=== PATIENT | male | born 1965 | race Caucasian/White ===

== ENCOUNTER 2018-07-25 21:56 | Inpatient (IN) | payer MEDICARE, OTHER ==
[~2018-07-25] VITALS: Ht 165.1 cm; Wt 106.8 kg
[~2018-07-25 21:56] MED LIST: ACET-890 PO; AMIL5TAB3 PO; AMOX-441 PO; BACDS PO; COL100C PO; DEXT37.55 PO; DULO-31 PO; HYDR28.457 TP; INSU100I12 SQ; INSU100V36 SQ; LACT1POW8 PO; METF500T7 PO; MULT-215 PO; NORCO10T PO; NYSTATIN TOP; ONDA4TAB6 PO; OXYC10TA6 PO; POLY17PO10 PO; PREG100C24 PO; VIT C PO; ZINC PO; [UNRECOGNIZED DRUG - CODE] TP
[2018-07-25] MEDS ORDERED: acetaminophen 325mg tablet PO STA (22:02)
[2018-07-25] MEDS ORDERED: normal saline 1000ML IV soln IV ONE (22:05)
[2018-07-25] MEDS ORDERED: levoFLOXACIN-Levaquin 750MG/D5 150 ML IV ONE (22:05)
[2018-07-25 22:34] LABS: BASOPHILS # (AUTO) 0.1 X10'3 (0-0.2); BASOPHILS % (AUTO) 1.9 % (0-1); EOSINOPHILS # (AUTO) 0.2 X10'3 (0-0.9); HEMATOCRIT 38.8 % (42.0-52.0); HEMOGLOBIN 13.2 g/dl (14.0-17.9); LYMPHOCYTES # (AUTO) 1.6 X10'3 (1.1-4.8); MEAN CORPUSCULAR HEMOGLOBIN 30.4 PG (27.0-31.0); MEAN CORPUSCULAR HGB CONC 34.1 % (33.0-36.5); MEAN CORPUSCULAR VOLUME 89.2 FL (78-98); MONOCYTES # (AUTO) 0.5 X10'3 (0-0.9); MONOCYTES % (AUTO) 7.3 % (2-12); NEUTROPHILS # (AUTO) 4.7 X10'3 (1.8-7.7); NEUTROPHILS % (AUTO) 65.8 % (42-75); PLATELET COUNT 187 X10'3 (140-440); RED BLOOD COUNT 4.34 X10'6 (4.70-6.10); RED CELL DISTRIBUTION WIDTH 13.7 % (11.5-14.5); WHITE BLOOD COUNT 7.1 X10'3 (4.5-11.0)
[2018-07-25 22:45] LABS: ALANINE AMINOTRANSFERASE 32 U/L (12-78); ALBUMIN 2.8 G/DL (3.4-5.0); ALBUMIN/GLOBULIN RATIO 0.6 (1.1-1.5); ALKALINE PHOSPHATASE 82 IU/L (46-116); ANION GAP 8 (8-16); ASPARTATE AMINO TRANSFERASE 13 U/L (10-37); BILIRUBIN,TOTAL 0.4 MG/DL (0.1-1.0); BLOOD UREA NITROGEN 10 MG/DL (7-18); BUN/CREATININE RATIO 11.9 (5.4-32.0); CALCIUM 8.6 MG/DL (8.5-10.1); CHLORIDE 100 MMOL/L (99-107); CREATININE 0.84 MG/DL (0.60-1.10); GLUCOSE 309 MG/DL (70-104); MAGNESIUM 1.5 MG/DL (1.5-2.4); POTASSIUM 3.7 MMOL/L (3.5-5.1); SODIUM 135 MMOL/L (135-145); TOTAL CARBON DIOXIDE 27.1 MMOL/L (24-32); TOTAL PROTEIN 7.2 G/DL (6.4-8.2); eGFR > 90 ML/MIN
[2018-07-25] MEDS ORDERED: normal saline 1000ML IV soln IVB ONE (23:10)
[2018-07-25 23:26] LABS: CLARITY,URINE CLEAR (Clear); COLOR,URINE YELLOW (Yellow); GLUCOSE, URINE >=1000 mg/dl (Neg); KETONES,URINE NEGATIVE (Neg); LEUKOCYTE ESTERASE ,URINE SMALL (Neg); NITRITES, URINE NEGATIVE (Neg); OCCULT BLOOD,URINE LARGE (Neg); PH,URINE 6.5 (4.8-8.0); PROTEIN,URINE NEGATIVE (Neg); UROBILINOGEN,URINE 0.2 E.U/dL (0.2-1.0)
[2018-07-25 23:27] LABS: PARTIAL THROMBOPLASTIN TIME 28 SECONDS (22-32); PROTHROMBIN TIME 10.5 SECONDS (9.0-12.0)
[2018-07-25 23:27] LABS: UA COLLECTION TYPE FOLEY CATH
[2018-07-25 23:34] LABS: BACTERIA,URINE NONE SEEN /HPF (Neg); MUCUS STRANDS NONE SEEN /LPF (Neg); SQUAMOUS EPITHELIAL CELL,UR NONE SEEN /LPF (FEW)
[2018-07-25] MEDS ORDERED: ondansetron/PF 4mg/2ml inj IV PRN (23:45)
[2018-07-25] MEDS ORDERED: potassium Cl 20 mEq SR tablet PO PRN ×2 (23:45)
[2018-07-25] MEDS ORDERED: magnesium 4gm in 100ml NS 100 ML IV PRN (23:45)
[2018-07-25] MEDS ORDERED: magnesium 1gm/100ml D5W IVPB 100 ML IV PRN (23:45)
[2018-07-25] MEDS ORDERED: magnesium hydroxide 30ml (MOM) UD suspension PO PRN (23:45)
[2018-07-25] MEDS ORDERED: dextrose 50%-water 50ml dispensing syringe IV PRN ×2 (23:45)
[2018-07-25] MEDS ORDERED: acetaminophen 325mg tablet PO PRN ×2 (23:45)
[2018-07-25] MEDS ORDERED: MESSAGE TO PHARMACY PO ONE (23:45)
[2018-07-25] MEDS ORDERED: dextrose ORAL solution 15 GM/59 ML bottle PO PRN ×2 (23:45)
[2018-07-25] MEDS ORDERED: glucagon, human recombinant 1mg kit SUBCUT PRN (23:45)
[2018-07-25] MEDS ORDERED: magnesium Cl slow-release 64mg tablet PO PRN (23:45)
[2018-07-25] MEDS ORDERED: potassium Cl 40MEQ/NS 500ml 500 ML IV PRN ×2 (23:45)
[2018-07-25] MEDS ORDERED: normal saline 1000ml 1,000 ML IV ONE (23:45)
[2018-07-25] MEDS ORDERED: mag hydrox/Alum hydrox/simeth 30ml oral suspension PO PRN (23:45)
[2018-07-26 01:15] VITALS: BP_SYST 209; BP_SYST 229; BP_DIAS 107; BP_DIAS 110
[2018-07-26] MEDS: hydrALAZINE 20mg/ml inj. IV PRN ×2 (01:29→23:00)
[2018-07-26 03:00] VITALS: BP 114/78
[2018-07-26] MEDS ORDERED: HYDROcodone/acetaminophen 10/325mg tab PO PRN (04:00)
[2018-07-26 06:02] LABS: ALBUMIN 2.3 G/DL (3.4-5.0); ANION GAP 8 (8-16); BLOOD UREA NITROGEN 8 MG/DL (7-18); BUN/CREATININE RATIO 13.6 (5.4-32.0); CALCIUM 7.8 MG/DL (8.5-10.1); CHLORIDE 108 MMOL/L (99-107); CREATININE 0.59 MG/DL (0.60-1.10); GLUCOSE 218 MG/DL (70-104); MAGNESIUM 1.5 MG/DL (1.5-2.4); POTASSIUM 3.8 MMOL/L (3.5-5.1); SODIUM 141 MMOL/L (135-145); TOTAL CARBON DIOXIDE 24.8 MMOL/L (24-32); eGFR > 90 ML/MIN
[2018-07-26 06:35] LABS: BASOPHILS % (AUTO) 0.4 % (0-1); EOSINOPHILS # (AUTO) 0.4 X10'3 (0-0.9); EOSINOPHILS % (AUTO) 5.8 % (0-6); HEMATOCRIT 34.5 % (42.0-52.0); HEMOGLOBIN 12.1 g/dl (14.0-17.9); LYMPHOCYTES # (AUTO) 1.4 X10'3 (1.1-4.8); LYMPHOCYTES % (AUTO) 20.4 % (21-51); MEAN CORPUSCULAR HGB CONC 35.1 % (33.0-36.5); MEAN PLATELET VOLUME 9.1 FL (7.4-10.4); MONOCYTES # (AUTO) 0.6 X10'3 (0-0.9); MONOCYTES % (AUTO) 9.3 % (2-12); NEUTROPHILS # (AUTO) 4.6 X10'3 (1.8-7.7); NEUTROPHILS % (AUTO) 64.1 % (42-75); PLATELET COUNT 169 X10'3 (140-440); RED CELL DISTRIBUTION WIDTH 14.2 % (11.5-14.5)
[2018-07-26 06:51] LABS: HEMOGLOBIN A1C 8.1 % (4.5-6.2)
[2018-07-26 07:46] VITALS: BP 153/83
[2018-07-26] MEDS: K and/or MAG REPLACEMENT MC SCH (08:00)
[2018-07-26] MEDS ORDERED: hydrocortisone 2.5% cream 28.4gm TP PRN (08:00)
[2018-07-26] MEDS ORDERED: INSU100I12 SQ (08:25)
[2018-07-26] MEDS: docusate sod 100mg capsule PO SCH ×2 (08:51→20:00)
[2018-07-26] MEDS: duloxetine 30mg CAPSULE.DR PO SCH (08:51)
[2018-07-26] MEDS: polyethylene glycol 3350 17gm powd pack PO SCH (08:51)
[2018-07-26] MEDS: enoxaparin 40mg/0.4ml syringe SQ SCH (08:52)
[2018-07-26] MEDS ORDERED: ONDA4TAB6 PO (09:16)
[2018-07-26] MEDS ORDERED: OXYC10TA6 PO (09:16)
[2018-07-26] MEDS ORDERED: NORCO10T PO (09:16)
[2018-07-26] MEDS ORDERED: VIT C PO (09:16)
[2018-07-26] MEDS ORDERED: [UNRECOGNIZED DRUG - CODE] TP (09:16)
[2018-07-26] MEDS ORDERED: POLY17PO10 PO (09:16)
[2018-07-26] MEDS ORDERED: ZINC PO (09:16)
[2018-07-26] MEDS ORDERED: PREG100C24 PO (09:16)
[2018-07-26 12:14] VITALS: BP 143/76
[2018-07-26] MEDS: insulin Lispro (HumaLOG) vial - multi-dose SQ SCH ×2 (13:10→18:37)
[2018-07-26] MEDS: nystatin/triamcinolone cream 15gm TP SCH ×2 (15:50→20:41)
[2018-07-26] MEDS: DOXYCYCLINE 100MG CAPSULE PO SCH (17:17)
[2018-07-26 20:00] VITALS: BP 165/91
[2018-07-26] MEDS: nystatin 15 GM powder TP SCH (20:40)
[2018-07-26] MEDS: lactobacillus rhamnosus 10,000 MMU CELLS/CAPSULE PO SCH (20:40)
[2018-07-26] MEDS: insulin glargine (Lantus) pen - multi-dose SQ SCH (20:43)
[2018-07-26] MEDS ORDERED: Insulin Detemir pen SQ SCH (21:00)
[2018-07-26] MEDS ORDERED: levoFLOXACIN-Levaquin 750MG/D5 150 ML IV SCH (22:00)
[2018-07-27] VITALS: BP 190/89
[2018-07-27] MEDS: K and/or MAG REPLACEMENT MC SCH (08:00)
[2018-07-27] MEDS: nystatin/triamcinolone cream 15gm TP SCH ×3 (08:00→22:36)
[2018-07-27 08:06] VITALS: BP 169/92
[2018-07-27 08:47] LABS: ALBUMIN 2.7 G/DL (3.4-5.0); ANION GAP 12 (8-16); BLOOD UREA NITROGEN 10 MG/DL (7-18); BUN/CREATININE RATIO 22.2 (5.4-32.0); CALCIUM 8.2 MG/DL (8.5-10.1); CHLORIDE 102 MMOL/L (99-107); CREATININE 0.45 MG/DL (0.60-1.10); GLUCOSE 146 MG/DL (70-104); MAGNESIUM 1.5 MG/DL (1.5-2.4); POTASSIUM 3.9 MMOL/L (3.5-5.1); SODIUM 139 MMOL/L (135-145); TOTAL CARBON DIOXIDE 25.1 MMOL/L (24-32); eGFR > 90 ML/MIN
[2018-07-27] MEDS: insulin Lispro (HumaLOG) vial - multi-dose SQ SCH ×3 (08:47→19:20)
[2018-07-27] MEDS: DOXYCYCLINE 100MG CAPSULE PO SCH (09:31)
[2018-07-27] MEDS: docusate sod 100mg capsule PO SCH ×2 (09:31→22:35)
[2018-07-27] MEDS: lactobacillus rhamnosus 10,000 MMU CELLS/CAPSULE PO SCH ×2 (09:31→22:35)
[2018-07-27] MEDS: duloxetine 30mg CAPSULE.DR PO SCH (09:32)
[2018-07-27] MEDS: polyethylene glycol 3350 17gm powd pack PO SCH (09:32)
[2018-07-27] MEDS: enoxaparin 40mg/0.4ml syringe SQ SCH (09:32)
[2018-07-27] MEDS: nystatin 15 GM powder TP SCH ×2 (10:49→22:36)
[2018-07-27 11:44] VITALS: BP 98/50
[2018-07-27] MEDS ORDERED: vancomycin/NS 1 GM ADD-VANTAGE 250 ML IV SCH (12:40)
[2018-07-27] MEDS: hydrALAZINE 20mg/ml inj. IV PRN (19:21)
[2018-07-27 20:00] VITALS: BP 202/102
[2018-07-27 21:00] VITALS: BP 136/72
[2018-07-27] MEDS: insulin glargine (Lantus) pen - multi-dose SQ SCH (22:41)
[2018-07-27] MEDS: HYDROcodone/acetaminophen 10/325mg tab PO PRN (22:55)
[2018-07-28] VITALS: BP 173/82
[2018-07-28 00:30] VITALS: BP 108/60
[2018-07-28 06:09] LABS: ALBUMIN 2.3 G/DL (3.4-5.0); ANION GAP 7 (8-16); BLOOD UREA NITROGEN 13 MG/DL (7-18); BUN/CREATININE RATIO 34.2 (5.4-32.0); CALCIUM 8.1 MG/DL (8.5-10.1); CHLORIDE 106 MMOL/L (99-107); CREATININE 0.38 MG/DL (0.60-1.10); GLUCOSE 125 MG/DL (70-104); MAGNESIUM 1.6 MG/DL (1.5-2.4); SODIUM 140 MMOL/L (135-145); TOTAL CARBON DIOXIDE 26.9 MMOL/L (24-32); eGFR > 90 ML/MIN
[2018-07-28 06:11] LABS: POTASSIUM 4.6 MMOL/L (3.5-5.1)
[2018-07-28] MEDS: K and/or MAG REPLACEMENT MC SCH (08:00)
[2018-07-28 08:06] VITALS: BP 153/82
[2018-07-28] MEDS: nystatin 15 GM powder TP SCH ×2 (08:44→22:39)
[2018-07-28] MEDS: nystatin/triamcinolone cream 15gm TP SCH ×3 (08:44→22:39)
[2018-07-28] MEDS: docusate sod 100mg capsule PO SCH ×2 (08:45→19:50)
[2018-07-28] MEDS: enoxaparin 40mg/0.4ml syringe SQ SCH (08:45)
[2018-07-28] MEDS: polyethylene glycol 3350 17gm powd pack PO SCH (08:45)
[2018-07-28] MEDS: duloxetine 30mg CAPSULE.DR PO SCH (08:45)
[2018-07-28] MEDS: lactobacillus rhamnosus 10,000 MMU CELLS/CAPSULE PO SCH ×2 (08:46→19:50)
[2018-07-28] MEDS: insulin Lispro (HumaLOG) vial - multi-dose SQ SCH ×3 (08:52→19:56)
[2018-07-28 11:00] VITALS: BP 134/77
[2018-07-28] MEDS ORDERED: VANCOMYCIN LEVEL IV ONE (13:30)
[2018-07-28 19:30] VITALS: BP 161/90
[2018-07-28] MEDS: HYDROcodone/acetaminophen 10/325mg tab PO PRN (20:29)
[2018-07-28] MEDS: insulin glargine (Lantus) pen - multi-dose SQ SCH (23:51)
[2018-07-29] VITALS: BP 156/86
[2018-07-29] MEDS: HYDROcodone/acetaminophen 10/325mg tab PO PRN ×2 (04:50→19:25)
[2018-07-29 05:42] LABS: ALBUMIN 2.5 G/DL (3.4-5.0); ANION GAP 8 (8-16); BLOOD UREA NITROGEN 10 MG/DL (7-18); BUN/CREATININE RATIO 26.3 (5.4-32.0); CALCIUM 8.5 MG/DL (8.5-10.1); CHLORIDE 106 MMOL/L (99-107); CREATININE 0.38 MG/DL (0.60-1.10); GLUCOSE 113 MG/DL (70-104); MAGNESIUM 1.6 MG/DL (1.5-2.4); POTASSIUM 3.6 MMOL/L (3.5-5.1); SODIUM 142 MMOL/L (135-145); TOTAL CARBON DIOXIDE 28.5 MMOL/L (24-32); eGFR > 90 ML/MIN
[2018-07-29 05:45] LABS: BASOPHILS % (AUTO) 0.8 % (0-1); EOSINOPHILS # (AUTO) 0.8 X10'3 (0-0.9); EOSINOPHILS % (AUTO) 15.2 % (0-6); HEMATOCRIT 35.1 % (42.0-52.0); HEMOGLOBIN 12.1 g/dl (14.0-17.9); LYMPHOCYTES # (AUTO) 1.5 X10'3 (1.1-4.8); LYMPHOCYTES % (AUTO) 28.3 % (21-51); MEAN CORPUSCULAR HEMOGLOBIN 31.2 PG (27.0-31.0); MEAN CORPUSCULAR HGB CONC 34.6 % (33.0-36.5); MEAN CORPUSCULAR VOLUME 90.2 FL (78-98); MONOCYTES # (AUTO) 0.4 X10'3 (0-0.9); MONOCYTES % (AUTO) 8.2 % (2-12); NEUTROPHILS # (AUTO) 2.6 X10'3 (1.8-7.7); NEUTROPHILS % (AUTO) 47.5 % (42-75); PLATELET COUNT 205 X10'3 (140-440); RED BLOOD COUNT 3.89 X10'6 (4.70-6.10); RED CELL DISTRIBUTION WIDTH 13.3 % (11.5-14.5); WHITE BLOOD COUNT 5.3 X10'3 (4.5-11.0)
[2018-07-29 07:15] VITALS: BP 192/102
[2018-07-29] MEDS: K and/or MAG REPLACEMENT MC SCH (08:00)
[2018-07-29 08:45] VITALS: BP 133/84
[2018-07-29] MEDS: duloxetine 30mg CAPSULE.DR PO SCH (08:58)
[2018-07-29] MEDS: polyethylene glycol 3350 17gm powd pack PO SCH (08:58)
[2018-07-29] MEDS: lactobacillus rhamnosus 10,000 MMU CELLS/CAPSULE PO SCH ×2 (08:59→19:29)
[2018-07-29] MEDS: docusate sod 100mg capsule PO SCH ×2 (08:59→19:25)
[2018-07-29] MEDS: enoxaparin 40mg/0.4ml syringe SQ SCH (09:00)
[2018-07-29] MEDS: nystatin/triamcinolone cream 15gm TP SCH ×3 (09:01→21:25)
[2018-07-29] MEDS: nystatin 15 GM powder TP SCH ×2 (09:02→21:20)
[2018-07-29] MEDS: insulin Lispro (HumaLOG) vial - multi-dose SQ SCH ×3 (09:06→19:22)
[2018-07-29 11:54] VITALS: BP 146/85
[2018-07-29] MEDS ORDERED: iohexol 300mg/ml 100ml inj. ONE (16:39)
[2018-07-29 18:00] VITALS: BP 186/94
[2018-07-29] MEDS: hydrALAZINE 20mg/ml inj. IV PRN (19:25)
[2018-07-29] MEDS: sulfamethoxazole/trimethoprim DS (800/160mg) tablet PO SCH (19:25)
[2018-07-29] MEDS: insulin glargine (Lantus) pen - multi-dose SQ SCH (21:23)
[2018-07-29 21:51] VITALS: BP 152/59
[2018-07-30] VITALS: BP 153/86
[2018-07-30 06:01] LABS: BASOPHILS % (AUTO) 0.9 % (0-1); EOSINOPHILS # (AUTO) 0.6 X10'3 (0-0.9); EOSINOPHILS % (AUTO) 11.4 % (0-6); HEMATOCRIT 35.1 % (42.0-52.0); HEMOGLOBIN 12.3 g/dl (14.0-17.9); LYMPHOCYTES # (AUTO) 1.4 X10'3 (1.1-4.8); LYMPHOCYTES % (AUTO) 27.1 % (21-51); MEAN CORPUSCULAR HEMOGLOBIN 31.5 PG (27.0-31.0); MEAN CORPUSCULAR HGB CONC 35.1 % (33.0-36.5); MEAN CORPUSCULAR VOLUME 89.7 FL (78-98); MONOCYTES # (AUTO) 0.4 X10'3 (0-0.9); MONOCYTES % (AUTO) 6.7 % (2-12); NEUTROPHILS # (AUTO) 2.9 X10'3 (1.8-7.7); NEUTROPHILS % (AUTO) 53.9 % (42-75); PLATELET COUNT 184 X10'3 (140-440); RED BLOOD COUNT 3.91 X10'6 (4.70-6.10); RED CELL DISTRIBUTION WIDTH 13.3 % (11.5-14.5); WHITE BLOOD COUNT 5.3 X10'3 (4.5-11.0)
[2018-07-30 06:13] LABS: ALBUMIN 2.5 G/DL (3.4-5.0); ANION GAP 10 (8-16); BLOOD UREA NITROGEN 12 MG/DL (7-18); BUN/CREATININE RATIO 27.9 (5.4-32.0); CHLORIDE 104 MMOL/L (99-107); CREATININE 0.43 MG/DL (0.60-1.10); GLUCOSE 106 MG/DL (70-104); MAGNESIUM 1.5 MG/DL (1.5-2.4); SODIUM 140 MMOL/L (135-145); TOTAL CARBON DIOXIDE 26.4 MMOL/L (24-32); eGFR > 90 ML/MIN
[2018-07-30 06:31] LABS: POTASSIUM 3.9 MMOL/L (3.5-5.1)
[2018-07-30 07:00] VITALS: BP 149/85
[2018-07-30] MEDS: duloxetine 30mg CAPSULE.DR PO SCH (07:36)
[2018-07-30] MEDS: polyethylene glycol 3350 17gm powd pack PO SCH (07:36)
[2018-07-30] MEDS: lactobacillus rhamnosus 10,000 MMU CELLS/CAPSULE PO SCH ×2 (07:36→19:20)
[2018-07-30] MEDS: sulfamethoxazole/trimethoprim DS (800/160mg) tablet PO SCH ×2 (07:36→19:20)
[2018-07-30] MEDS: docusate sod 100mg capsule PO SCH ×2 (07:36→19:20)
[2018-07-30] MEDS: enoxaparin 40mg/0.4ml syringe SQ SCH (07:38)
[2018-07-30] MEDS: nystatin 15 GM powder TP SCH ×2 (07:39→19:20)
[2018-07-30] MEDS: nystatin/triamcinolone cream 15gm TP SCH ×3 (07:39→21:44)
[2018-07-30] MEDS: K and/or MAG REPLACEMENT MC SCH (08:00)
[2018-07-30] MEDS: insulin Lispro (HumaLOG) vial - multi-dose SQ SCH ×3 (08:57→19:19)
[2018-07-30] MEDS ORDERED: BACDS PO (11:37)
[2018-07-30] MEDS ORDERED: LACT1CAP26 PO (11:37)
[2018-07-30] MEDS: HYDROcodone/acetaminophen 10/325mg tab PO PRN ×2 (14:45→19:23)
[2018-07-30 18:00] VITALS: BP 106/60
[2018-07-30] MEDS: insulin glargine (Lantus) pen - multi-dose SQ SCH (21:41)
[2018-07-31] VITALS: BP 100/53
[2018-07-31 07:00] VITALS: BP 142/84
[2018-07-31] MEDS: K and/or MAG REPLACEMENT MC SCH (08:00)
[2018-07-31] MEDS: enoxaparin 40mg/0.4ml syringe SQ SCH (08:19)
[2018-07-31] MEDS: polyethylene glycol 3350 17gm powd pack PO SCH (08:19)
[2018-07-31] MEDS: sulfamethoxazole/trimethoprim DS (800/160mg) tablet PO SCH (08:20)
[2018-07-31] MEDS: nystatin/triamcinolone cream 15gm TP SCH ×2 (08:20→12:40)
[2018-07-31] MEDS: duloxetine 30mg CAPSULE.DR PO SCH (08:20)
[2018-07-31] MEDS: docusate sod 100mg capsule PO SCH (08:20)
[2018-07-31] MEDS: nystatin 15 GM powder TP SCH (08:20)
[2018-07-31] MEDS: lactobacillus rhamnosus 10,000 MMU CELLS/CAPSULE PO SCH (08:20)
[2018-07-31] MEDS: insulin Lispro (HumaLOG) vial - multi-dose SQ SCH (08:24)
[2018-07-31 12:00] VITALS: BP 159/102
[2018-07-31] MEDS: HYDROcodone/acetaminophen 10/325mg tab PO PRN (12:39)
[2018-07-31 12:55] VITALS: BP 142/89
== END 2018-07-31 14:14 | disposition home health service (06) | DRG 698 ==
LOC: ER 21:57 → ED HOLD 23:45 → SUR 3N 07-26 00:57
PROVIDERS: ADMIT Hospitalist; ATTEND Hospitalist
PROC: 0T2BX0Z Change Drainage Device in Bladder, External Approach (ICD-10-PCS; 2018-07-25)
PROC: 3E02340 Introduction of Influenza Vaccine into Muscle, Percutaneous Approach (ICD-10-PCS; principal; 2018-07-26)
PROC: BW211ZZ Computerized Tomography (CT Scan) of Abdomen and Pelvis using Low Osmolar Contrast (ICD-10-PCS; 2018-07-29)
DX: T83.518A Infection and inflammatory reaction due to other urinary catheter, initial encounter (principal); L89.153 Pressure ulcer of sacral region, stage 3; G82.50 Quadriplegia, unspecified; K59.2 Neurogenic bowel, not elsewhere classified; R44.3 Hallucinations, unspecified; M86.60 Other chronic osteomyelitis, unspecified site; L03.312 Cellulitis of back [any part except buttock and flank]; N31.9 Neuromuscular dysfunction of bladder, unspecified; B95.62 Methicillin resistant Staphylococcus aureus infection as the cause of diseases classified elsewhere; F17.200 Nicotine dependence, unspecified, uncomplicated; G89.4 Chronic pain syndrome; E11.9 Type 2 diabetes mellitus without complications; Z93.3 Colostomy status; Z88.1 Allergy status to other antibiotic agents; Z88.8 Allergy status to other drugs, medicaments and biological substances; Z79.899 Other long term (current) drug therapy; Z79.4 Long term (current) use of insulin; Z86.14 Personal history of Methicillin resistant Staphylococcus aureus infection; Z23 Encounter for immunization
CPT/HCPCS: 36415; 71045; 74177; 80048; 80053; 80202; 81001; 82948; 83036; 83605; 83735; 84145; 85025; 85610; 85730; 87040; 87070; 87077; 87088; 87186; 93005; 96365; 97110; 97161; 97530; 99285; A4344; A4649; A6266; J0360; J1650; J1815; J1956; J3370; Q2037; Q9967

== ENCOUNTER 2022-08-28 12:35 | Outpatient (CLI) | payer OTHER ==
[~2022-08-28 12:35] MED LIST changes: -AMIL5TAB3 PO; -AMOX-441 PO; -BACDS PO; -COL100C PO; -DEXT37.55 PO; -DULO-31 PO; -HYDR28.457 TP; -INSU100V36 SQ; +LACT1CAP26 PO; -LACT1POW8 PO; -METF500T7 PO; -MULT-215 PO; +SULF1TAB45 PO
== END 2022-08-28 23:59 | disposition home or self-care (01) ==
LOC: CARD DIAG 12:35
PROVIDERS: ATTEND Internal Medicine
DX: I34.81 Nonrheumatic mitral (valve) annulus calcification (principal); R79.9 Abnormal finding of blood chemistry, unspecified
CPT/HCPCS: 93306

== ENCOUNTER 2022-09-01 11:44 | Outpatient (CLI) | payer OTHER ==
[2022-09-01] MEDS ORDERED: GADOTERATE MEGLUMINE 7.5 MMOL/15 ML VIAL IV ONE (16:34)
== END 2022-09-01 23:59 | disposition home or self-care (01) ==
LOC: RAD 11:44
PROVIDERS: ATTEND Internal Medicine
DX: M16.0 Bilateral primary osteoarthritis of hip (principal); M25.752 Osteophyte, left hip; M25.751 Osteophyte, right hip; M79.89 Other specified soft tissue disorders; L02.31 Cutaneous abscess of buttock; M46.28 Osteomyelitis of vertebra, sacral and sacrococcygeal region; Z98.890 Other specified postprocedural states
CPT/HCPCS: 72197; A9575